=== PATIENT | female | born 1955 | race Caucasian/White ===

== ENCOUNTER 2021-10-07 07:54 | Outpatient (CLI) | payer MEDICARE ==
[2021-10-07 08:45] LABS: Hemoglobin 15.7 g/dL (12.0-15.5)
[2021-10-07 09:18] LABS: Anion Gap 16 mmol/L (10-20); BUN (Urea Nitrogen) 7 mg/dL (9.8-20.1); Calc. Creatinine Clearance 0 mL/min (70-130); Calcium 8.7 mg/dL (7.8-10.44); Carbon Dioxide 23 mmol/L (23-31); Chloride 106 mmol/L (98-107); Glucose 87 mg/dL (80-115); Potassium 3.9 mmol/L (3.5-5.1); Sodium 141 mmol/L (136-145)
== END 2021-10-07 07:55 | disposition home or self-care (01) ==
LOC: CSHLAB 07:54
PROVIDERS: ATTEND Otolaryngology Otolaryngic Allergy
DX: Z01.818 Encounter for other preprocedural examination (principal); Z20.822 Contact with and (suspected) exposure to COVID-19; R49.0 Dysphonia
CPT/HCPCS: 80048; 85014; 85018; 93005; 93010; U0003; U0005

== ENCOUNTER 2021-10-12 08:06 | Day surgery (SDC) | payer MEDICARE ==
[2021-10-08 11:58] VITALS: BMI 16.9
[2021-10-12] MEDS ORDERED: SUGAMMADEX SODIUM 200 MG/2 ML VIAL ONE (10:17)
[2021-10-12] MEDS ORDERED: EPINEPHrine 1 MG/ML AMP ONE (10:19)
[2021-10-12] MEDS ORDERED: PROPOFOL 60 ML ONE (10:20)
[2021-10-12] MEDS ORDERED: Fentanyl 100 MCG/2 ML VIAL ONE (10:20)
[2021-10-12] MEDS ORDERED: Midazolam HCl 2 mg/2 ml Vial ONE (10:20)
[2021-10-12] MEDS ORDERED: Ondansetron PF 4 MG/2 ML Vial ONE (10:21)
[2021-10-12] MEDS ORDERED: Rocuronium Bromide 10 MG/ML (10ML VIAL) ONE (10:21)
[2021-10-12] MEDS ORDERED: Dexamethasone 20 MG/5 ML VIAL ONE (10:21)
== END 2021-10-12 12:30 | disposition home or self-care (01) ==
LOC: CSHSDC 08:06
PROVIDERS: ATTEND Otolaryngology Otolaryngic Allergy
PROC: 0CDT8ZZ Extraction of Right Vocal Cord, Via Natural or Artificial Opening Endoscopic (ICD-10-PCS; principal; 2021-10-12)
DX: J38.3 Other diseases of vocal cords (principal); J42 Unspecified chronic bronchitis; J43.9 Emphysema, unspecified; F17.210 Nicotine dependence, cigarettes, uncomplicated; E78.5 Hyperlipidemia, unspecified; Z79.899 Other long term (current) drug therapy
CPT/HCPCS: 88305; J0171; J1100; J2250; J2405; J2704; J3010

== ENCOUNTER 2023-03-22 18:33 | Inpatient (IN) | payer MEDICARE ==
[2023-03-22] MEDS ORDERED: Ipratropium/Albuterol 3 ML NEB ONE (18:55)
[2023-03-22 19:03] LABS: #Eosinphils 0.1 10x3/uL (0.0-0.5); #Monocytes 0.3 10x3/uL (0.0-1.1); #Neutrophils 3.6 10x3/uL (1.5-8.4); %Basophils 0.3 % (0.0-2.0); %Eosinophils 1.7 % (0.0-6.0); %Lymphocytes 30.3 % (18.0-47.0); %Monocytes 5.6 % (0.0-10.0); %Neutrophils 61.8 % (40.0-75.0); Hematocrit 46.9 % (34.9-44.5); Hemoglobin 15.9 g/dL (12.0-15.5); Mean Corpuscular HGB CONC 33.9 g/dL (32.0-36.0); Mean Corpuscular Hemoglobin 30.7 pg (27.0-33.0); Mean Corpuscular Volume 90.5 fl (81.6-98.3); Mean Platelet Volume 8.9 fl (7.4-10.4); Platelet Count 152 10x3/uL (150-450); RBC Distribution Width 12.9 % (11.5-14.5); Red Blood Cell (RBC) Count 5.18 10x6/uL (3.90-5.03); White Blood Cell (WBC) Count 5.9 10x3/uL (3.5-10.5)
[2023-03-22 19:13] LABS: ALT (SGPT) 10 U/L (8-55); AST (SGOT) 18 U/L (5-34); Albumin 3.8 g/dL (3.4-4.8); Alkaline Phosphatase 100 U/L (40-110); Anion Gap 14 mmol/L (10-20); BUN (Urea Nitrogen) 5 mg/dL (9.8-20.1); Bilirubin, Total 0.4 mg/dL (0.2-1.2); Calc. Creatinine Clearance 0 mL/min (70-130); Calcium 8.4 mg/dL (7.8-10.44); Carbon Dioxide 22 mmol/L (23-31); Chloride 106 mmol/L (98-107); Estimated GFR 80; Globulin 2.9 g/dL (2.4-3.5); Glucose 110 mg/dL (80-115); Potassium 4.2 mmol/L (3.5-5.1); Protein, Total 6.7 g/dL (5.8-8.1); Sodium 138 mmol/L (136-145)
[2023-03-22 19:14] LABS: Troponin I 0.021 ng/mL (< 0.028)
[2023-03-22 19:59] LABS: SARS-CoV-2 NAA Rapid Test Not Detected (NotDetected)
[2023-03-22 20:21] LABS: Bilirubin Neg (Negative); Blood, Urine 10 (Negative); Clarity Clear (Clear); Glucose, Urine (Dipstick) Normal (Negative); Ketone, Urine Negative (Negative); Leukocyte Negative (Negative); Nitrite Negative (Negative); Protein, Urine (Dipstick) Negative (Neg-Trace); Specific Gravity, Urine 1.015 (1.005-1.030); Urobilinogen Normal mg/dL (Less than 2)
[2023-03-22 20:42] LABS: Bacteria/HPF 1+ HPF (None Seen); CAUTI Indications for Culture Pelvic or flank pain; Mucous/LPF Rare LPF (<2+); RBC/HPF 0-3 HPF (0-3); Squamous Epithelial 0-3 HPF (0-3); WBC/HPF 0-3 HPF (0-3)
[2023-03-22 20:43] LABS: Urine Culture Reflex No No
[2023-03-22] MEDS ORDERED: Arformoterol 15 MCG/2 ML NEB NEB SCH (21:00)
[2023-03-22] MEDS ORDERED: Acetaminophen 325 MG TAB PO PRN (21:01)
[2023-03-22] MEDS ORDERED: Melatonin 3 MG TAB PO PRN (21:01)
[2023-03-22] MEDS ORDERED: Calcium Carbonate 500 MG ChewTAB PO PRN (21:01)
[2023-03-22] MEDS ORDERED: Ondansetron PF 4 MG/2 ML Vial IVP PRN (21:01)
[2023-03-22] MEDS ORDERED: Senokot S 8.6-50 MG TAB PO PRN (21:01)
[2023-03-22] MEDS ORDERED: Ondansetron ODT 4 MG TAB PO PRN (21:01)
[2023-03-22] MEDS ORDERED: guaiFENesin ER 600 MG TAB PO SCH (21:15)
[2023-03-22] MEDS ORDERED: Ketorolac Tromethamine 30 MG/ML VIAL IVP SCH (21:15)
[2023-03-22] MEDS ORDERED: GUAIFENESIN SF SOLN 200 MG/10 ML UDCUP PO SCH (21:15)
[2023-03-22 21:21] LABS: Magnesium 1.9 mg/dL (1.6-2.6)
[2023-03-22] MEDS ORDERED: Ketorolac Tromethamine 30 MG/ML VIAL ONE (21:36)
[2023-03-22] MEDS ORDERED: guaiFENesin/Codeine Phosphate 100 mg/10 mg 5 ml UD Cup ONE (21:37)
[2023-03-23] MEDS ORDERED: methylPREDNISolone Sod Succ 40 MG VIAL IVP SCH (00:01)
[2023-03-23] MEDS: Ipratropium/Albuterol 3 ML NEB NEB SCH ×4 (01:00→19:30)
[2023-03-23] MEDS ORDERED: methylPREDNISolone Sod Succ 40 MG VIAL ONE (02:15)
[2023-03-23] MEDS ORDERED: Ipratropium/Albuterol 3 ML NEB ONE ×2 (03:51→06:23)
[2023-03-23 04:04] LABS: #Monocytes 0.1 10x3/uL (0.0-1.1); #Neutrophils 2.3 10x3/uL (1.5-8.4); %Lymphocytes 28.5 % (18.0-47.0); %Monocytes 1.5 % (0.0-10.0); %Neutrophils 69.7 % (40.0-75.0); Hematocrit 43.9 % (34.9-44.5); Hemoglobin 15.1 g/dL (12.0-15.5); Mean Corpuscular HGB CONC 34.4 g/dL (32.0-36.0); Mean Corpuscular Hemoglobin 31.7 pg (27.0-33.0); Mean Corpuscular Volume 92.2 fl (81.6-98.3); Mean Platelet Volume 9.3 fl (7.4-10.4); Platelet Count 145 10x3/uL (150-450); RBC Distribution Width 12.7 % (11.5-14.5); Red Blood Cell (RBC) Count 4.76 10x6/uL (3.90-5.03); White Blood Cell (WBC) Count 3.3 10x3/uL (3.5-10.5)
[2023-03-23 04:09] LABS: Anion Gap 14 mmol/L (10-20); BUN (Urea Nitrogen) 12 mg/dL (9.8-20.1); Calc. Creatinine Clearance 0 mL/min (70-130); Calcium 8.7 mg/dL (7.8-10.44); Carbon Dioxide 20 mmol/L (23-31); Chloride 108 mmol/L (98-107); Estimated GFR 76; Glucose 159 mg/dL (80-115); Potassium 4.1 mmol/L (3.5-5.1); Sodium 138 mmol/L (136-145)
[2023-03-23] MEDS: Budesonide 0.25 MG/2 ML NEB INH SCH ×2 (06:45→19:30)
[2023-03-23] MEDS: Arformoterol 15 MCG/2 ML NEB NEB SCH ×2 (06:45→19:30)
[2023-03-23 08:29] VITALS: BMI 17.1
[2023-03-23] MEDS: Bupropion 150 MG SR.TAB PO SCH (09:06)
[2023-03-23] MEDS: predniSONE 20 MG TAB PO SCH (09:06)
[2023-03-23] MEDS: Cholecalciferol 1,000 UNITS (25 MCG) TAB PO SCH (09:06)
[2023-03-23] MEDS: guaiFENesin ER 600 MG TAB PO SCH ×2 (09:07→20:11)
[2023-03-23] MEDS ORDERED: Sodium Chloride 0.9% 1,000 ML IV SCH (12:45)
[2023-03-23] MEDS: Loratadine 10 MG TAB PO SCH (20:11)
[2023-03-23] MEDS: Rosuvastatin 20 MG TAB PO SCH (20:11)
[2023-03-23] MEDS ORDERED: Acetaminophen/Codeine 30-300mg Tablet PO SCH (20:45)
[2023-03-24] MEDS: Ipratropium/Albuterol 3 ML NEB NEB SCH ×4 (01:05→19:07)
[2023-03-24 04:48] LABS: #Monocytes 0.5 10x3/uL (0.0-1.1); #Neutrophils 4.8 10x3/uL (1.5-8.4); %Eosinophils 0.1 % (0.0-6.0); %Lymphocytes 26.7 % (18.0-47.0); %Monocytes 6.7 % (0.0-10.0); Hematocrit 37.2 % (34.9-44.5); Hemoglobin 12.4 g/dL (12.0-15.5); Mean Corpuscular HGB CONC 33.3 g/dL (32.0-36.0); Mean Corpuscular Hemoglobin 30.6 pg (27.0-33.0); Mean Corpuscular Volume 91.9 fl (81.6-98.3); Mean Platelet Volume 9.2 fl (7.4-10.4); Platelet Count 124 10x3/uL (150-450); Red Blood Cell (RBC) Count 4.05 10x6/uL (3.90-5.03); White Blood Cell (WBC) Count 7.3 10x3/uL (3.5-10.5)
[2023-03-24 05:01] LABS: Anion Gap 12 mmol/L (10-20); BUN (Urea Nitrogen) 12 mg/dL (9.8-20.1); Calc. Creatinine Clearance 45 mL/min (70-130); Calcium 8.3 mg/dL (7.8-10.44); Carbon Dioxide 23 mmol/L (23-31); Chloride 110 mmol/L (98-107); Estimated GFR 77; Glucose 100 mg/dL (80-115); Sodium 141 mmol/L (136-145)
[2023-03-24] MEDS ORDERED: Benzonatate 100 MG CAP PO SCH (05:45)
[2023-03-24] MEDS ORDERED: Acetaminophen/Codeine 30-300mg Tablet PO SCH (05:45)
[2023-03-24] MEDS: Arformoterol 15 MCG/2 ML NEB NEB SCH ×2 (07:15→19:08)
[2023-03-24] MEDS: Budesonide 0.25 MG/2 ML NEB INH SCH ×2 (07:20→19:08)
[2023-03-24] MEDS ORDERED: FLU VACC QS2023(65UP)/MF59C/PF 60 MCG/0.5 ML SYRINGE IM ONE (09:00)
[2023-03-24] MEDS: predniSONE 20 MG TAB PO SCH (09:00)
[2023-03-24] MEDS: Cholecalciferol 1,000 UNITS (25 MCG) TAB PO SCH (09:54)
[2023-03-24] MEDS: Bupropion 150 MG SR.TAB PO SCH (09:54)
[2023-03-24] MEDS: guaiFENesin ER 600 MG TAB PO SCH ×2 (09:54→20:43)
[2023-03-24] MEDS: methylPREDNISolone Sod Succ 40 MG VIAL IVP SCH ×2 (10:54→18:06)
[2023-03-24] MEDS: Loratadine 10 MG TAB PO SCH (20:43)
[2023-03-24] MEDS: Rosuvastatin 20 MG TAB PO SCH (20:43)
[2023-03-25] MEDS: Ipratropium/Albuterol 3 ML NEB NEB SCH ×3 (01:01→13:00)
[2023-03-25] MEDS: methylPREDNISolone Sod Succ 40 MG VIAL IVP SCH ×3 (01:28→16:52)
[2023-03-25] MEDS ORDERED: Budesonide 0.25 MG/2 ML NEB ONE (07:11)
[2023-03-25] MEDS: Arformoterol 15 MCG/2 ML NEB NEB SCH (07:40)
[2023-03-25] MEDS: Budesonide 0.25 MG/2 ML NEB INH SCH (07:40)
[2023-03-25] MEDS: guaiFENesin ER 600 MG TAB PO SCH (09:03)
[2023-03-25] MEDS: Bupropion 150 MG SR.TAB PO SCH (09:03)
[2023-03-25] MEDS: Cholecalciferol 1,000 UNITS (25 MCG) TAB PO SCH (09:03)
[2023-03-25 16:56] VITALS: BP 156/73; TEMP 98.5
== END 2023-03-25 17:36 | disposition home or self-care (01) | DRG 189 ==
LOC: CSHERS 18:33 → CSHERHOLD 20:12 → CSHTELE 03-23 08:06 → OBSVTOIN 03-24 11:48
PROVIDERS: ADMIT Family Medicine; ATTEND Family Medicine
DX: J96.01 Acute respiratory failure with hypoxia (principal); J44.1 Chronic obstructive pulmonary disease with (acute) exacerbation; E78.5 Hyperlipidemia, unspecified; F17.210 Nicotine dependence, cigarettes, uncomplicated; R07.89 Other chest pain; Z79.51 Long term (current) use of inhaled steroids; Z79.899 Other long term (current) drug therapy; Z11.52 Encounter for screening for COVID-19
CPT/HCPCS: 36415; 71045; 80048; 80053; 81001; 83605; 83735; 83880; 84484; 85025; 86140; 93005; 94640; 94760; 94762; 96372; 96374; 96375; 96376; G0378; J1650; J1885; J2920; J7050; J7512; J7620; J7626

== ENCOUNTER 2023-04-18 09:22 | Outpatient (CLI) | payer MEDICARE | END 2023-04-18 09:23 | disposition home or self-care (01) | LOC: CSHCT 09:22 | PROVIDERS: ATTEND Family Medicine | DX: Z12.2 Encounter for screening for malignant neoplasm of respiratory organs (principal); F17.210 Nicotine dependence, cigarettes, uncomplicated; R91.1 Solitary pulmonary nodule; J43.9 Emphysema, unspecified; J98.4 Other disorders of lung | CPT/HCPCS: 71271 ==